=== PATIENT | female | born 1980 | race Caucasian/White ===

== ENCOUNTER 2017-06-17 18:53 | Outpatient (CLI) | payer OTHER, SELFPAY | END 2017-06-17 20:00 | PROVIDERS: Visit Provider Obstetrics & Gynecology | DX: O36.8130 Decreased fetal movements, third trimester, not applicable or unspecified (principal); Z3A.32 32 weeks gestation of pregnancy | CPT/HCPCS: 59025; G0378 ==

== ENCOUNTER → 2017-10-15 09:14 | Outpatient (CLI) | payer OTHER, SELFPAY ==
[2017-10-15 10:51] LABS: Glucose Fasting 99 mg/dL (70-100)
[2017-10-15 11:48] LABS: Glucose Tol Interpretation INTERPRETATION
[2017-10-15 12:19] LABS: Glucose 1 Hour 133 mg/dL (70-170)
[2017-10-15 12:46] LABS: Glucose 2 Hour 113 mg/dL (70-140)
== END ==
PROVIDERS: Visit Provider Obstetrics & Gynecology
DX: O24.419 Gestational diabetes mellitus in pregnancy, unspecified control (principal)
CPT/HCPCS: 36415; 82951; 82952

== ENCOUNTER → 2018-07-17 11:05 | Outpatient (CLI) | payer OTHER, SELFPAY ==
--- NOTE | 2018-07-17 | DI.RAD.S_ITS ---
PROCEDURE: XR FOOT RT 2V INDICATIONS: Fracture of unspecified metatarsal bone(s), right foot TECHNIQUE: 2 views of the foot were acquired. COMPARISON: None. FINDINGS: Bones: No fractures or dislocations. No suspicious bony lesions. Soft tissues: No tibiotalar joint effusion. Achilles tendon appears normal. IMPRESSION: No trauma found, source of asymmetric pain at the right foot is not seen. A stress fracture is not found. Dictated by: Emerson Hull M.D. on 07/17/2018 at 11:35 Approved by: Emerson Hull M.D. on 07/17/2018 at 11:36
== END ==
PROVIDERS: PCP Family Medicine; Visit Provider Chiropractor
DX: S92.301A Fracture of unspecified metatarsal bone(s), right foot, initial encounter for closed fracture (principal)
CPT/HCPCS: 73620

== ENCOUNTER 2021-07-22 18:32 | Emergency (ER) | payer OTHER, SELFPAY ==
[2021-07-22 18:38] VITALS: BMI 48.5
[2021-07-22] MEDS: ONDANSETRON 4 MG/2 ML INJ IV (19:16)
[2021-07-22] MEDS: SODIUM CHLORIDE 0.9% 1,000 ML 1000 ML IV (19:16)
[2021-07-22 19:26] LABS: Add Manual Diff / Slide Review NO; Basophils Absolute Auto 0 /uL (0-100); Basophils Percent Auto 0.3 % (0-2); Eosinophils Absolute Auto 0 /uL (0-450); Hematocrit 37.9 % (36-46); Hemoglobin 12.8 g/dL (12.0-16.0); Lymphocytes Absolute Auto 500 /uL (1100-4500); Lymphocytes Percent Auto 6.6 % (25-40); Mean Corpuscular HGB Conc 33.7 % (30-36); Mean Corpuscular Hemoglobin 27.3 PG (26-34); Mean Corpuscular Volume 80.9 fL (80-100); Monocytes Absolute Auto 400 /uL (0-900); Monocytes Percent Auto 4.9 % (3-14); Neutrophils Absolute Auto 6900 /uL (1500-7000); Neutrophils Percent Auto 88.2 % (50-75); Platelet Count 328 X10^3/uL (150-400); Red Blood Cell Count 4.68 X10^6/uL (4.0-5.2); Red Cell Distribution Width 14.7 % (11.6-14.8); White Blood Cell Count 7.8 X10^3/uL (4.5-11.0)
[2021-07-22 19:37] LABS: Alanine Aminotransferase 25 IU/L (<35); Albumin 4.5 g/dL (3.5-5.0); Albumin Globulin Ratio 1.3 (1.0-2.8); Alkaline Phosphatase 91 U/L (38-126); Aspartate Aminotransferase 29 IU/L (14-36); BUN Creatinine Ratio 16.4 (6-22); Bilirubin Total 0.7 mg/dL (0.2-1.3); Blood Urea Nitrogen 11 mg/dL (7-17); Calcium 8.5 mg/dL (8.4-10.2); Carbon Dioxide 22 mmol/L (22-32); Chloride 103 mmol/L (98-107); Estimated Glomerular Filt Rate > 60 mL/min (>60); Globulin 3.6 g/dL (1.7-4.1); Glucose 171 mg/dL (70-100); HEMOLYSIS < 15 (0-50); Lipase 58 U/L (23-300); Potassium 3.7 mmol/L (3.4-5.1); Sodium 138 mmol/L (137-145); Total Protein 8.1 g/dL (6.3-8.2)
--- NOTE | 2021-07-22 19:51 | ED.NAVMDI ---
HPI - Nausea/Vomiting/Diarrhea General Chief complaint: Nausea/Vomiting/Diarrhea Stated complaint: Norovirus N/V/D, Anxious Time Seen by Provider: 07/22/21 18:51 Source: patient Mode of arrival: Family Vehicle Limitations: no limitations History of Present Illness HPI Narrative: Patient is a 41-year-old female who history of anxiety and PTSD he was been unable to take her medications for the past couple days because of nausea vomiting and diarrhea. She has had nausea vomiting and diarrhea for the past couple days. She has been exposed to individuals who have had very similar symptoms. She was told by primary provider that she probably has norovirus. She does have generalized abdominal tenderness and currently has nausea. No change in a respiratory status. No urinary symptoms. She does have a very dry mouth. Related Data Previous Rx's Medication Instructions Recorded oxycodone 5 mg capsule 5 mg PO Q6H #30 cap 06/28/17 ursodiol 300 mg capsule 300 mg PO TID #60 cap 06/28/17 zolpidem 5 mg tablet 5 mg PO QHS PRN #20 tab 06/28/17 ondansetron 4 mg disintegrating 4 mg PO Q6H PRN #14 tab 07/22/21 tablet Allergies Allergy/AdvReac Type Severity Reaction Status Date / Time Penicillins [PENICILLINS] Allergy Mild RASH - CAN Unverified 07/22/21 18:42 TAKE [facility] Review of Systems Constitutional Constitutional: Denies fever(s) Cardiovascular Cardiovascular: Denies chest pain Respiratory Respiratory: Reports system reviewed and no additional complaints, except as documented Gastrointestinal Gastrointestinal: Reports as per HPI and Reports system reviewed and no additional complaints, except as documented Genitourinary Genitourinary: Reports system reviewed and no additional complaints, except as documented Integumentary/Breasts Skin/Breast: Reports system reviewed and no additional complaints, except as documented Neurologic Neurologic: Reports system reviewed and no additional complaints, except as documented Psychiatric Psychiatric: Reports system reviewed and no additional complaints, except as documented Hematologic/Lymphatic On Anticoagulants: No Patient History Medical History History of shoulder dystocia in prior (05/14/17) Right wrist injury Surgical History (Updated 09/04/17 @ 11:44 by Blossom Hamilton LPN) S/P section (07/11/17) Status post wrist surgery (2013) Social History Smoking Status: Never smoker Smoking Status: Never smoker Substance Use Type: does not use Exam Initial Vital Signs Initial Vital Signs: Vital Signs Temperature 99.9 F H 07/22/21 19:53 Pulse Rate 94 H 07/22/21 19:53 Respiratory Rate 20 07/22/21 19:53 Blood Pressure 146/69 H 07/22/21 19:53 Pulse Oximetry 99 07/22/21 19:53 Const General: cooperative and comfortable HENMT Head: normal to inspection and normocephalic Resp Effort & Inspection: normal respiratory effort Auscultation: clear to auscultation bilaterally Cardio Rate: regular rate Rhythm: regular rhythm GI Inspection: normal to inspection and non-distended Palpation: soft, No guarding and tender Skin General: no rashes or lesions noted Neuro General: patient alert, patient awake and moves all extremities Extrem General: normal to inspection and capillary refill normal Psych Appearance: grossly normal and well kempt Course Orders Ordered: ED Orders 07/22/21 19:20 Complete Blood Count AUTO DIFF Stat Comprehensive Metabolic Panel Stat Lipase Stat Discontinued Medications Sodium Chloride (Normal Saline 0.9%) 1,000 mls @ 1,000 mls/hr IV BOLUS ONE Stop: 07/22/21 20:04 Last Infusion: 07/22/21 21:32 Dose: 0 mls/hr Documented by: Admin: 07/22/21 19:16 Dose: 1,000 mls/hr Documented by: SURENDRA Lorazepam (Lorazepam 2 Mg/Ml Inj) 1 mg IV NOW ONE Stop: 07/22/21 19:52 Last Admin: 07/22/21 19:57 Dose: 1 mg Documented by: TAMMY Ondansetron HCl (Ondansetron 4 Mg/2 Ml Inj) 4 mg IV NOW ONE Stop: 07/22/21 18:38 Last Admin: 07/22/21 19:16 Dose: 4 mg Documented by: SURENDRA Ondansetron HCl (Ondansetron 4 Mg Odt Prepack) 1 bottle MISC SEEINSTR ONE Stop: 07/22/21 21:58 Vital Signs Vital signs: Vital Signs - 8 hr 07/22/21 19:53 Temperature 99.9 F H Pulse Rate 94 H Respiratory Rate 20 Blood Pressure 146/69 H Pulse Oximetry 99 MDM - Nausea/Vomiting/Diarrhea Lab Data Result diagrams: 07/22/21 19:20 07/22/21 19:20 Labs: Lab Results 07/22/21 07/22/21 Range/Units 19:20 19:20 WBC 7.8 (4.5-11.0) X10^3/uL RBC 4.68 (4.0-5.2) X10^6/uL Hgb 12.8 (12.0-16.0) g/dL Hct 37.9 (36-46) % MCV 80.9 (80-100) fL MCH 27.3 (26-34) PG MCHC 33.7 (30-36) % RDW 14.7 (11.6-14.8) % Plt Count 328 (150-400) X10^3/uL Neut % (Auto) 88.2 H (50-75) % Lymph % (Auto) 6.6 L (25-40) % [place] % (Auto) 4.9 (3-14) % Eos % (Auto) 0.0 L (2-4) % Baso % (Auto) 0.3 (0-2) % Neut # (Auto) 6900 (3639-7110) /uL Lymph # (Auto) 500 L (7236-7294) /uL [place] # (Auto) 400 (0-900) /uL Eos # (Auto) 0 (0-450) /uL Baso # (Auto) 0 (0-100) /uL Sodium 138 (137-145) mmol/L Potassium 3.7 (3.4-5.1) mmol/L Chloride 103 (98-107) mmol/L Carbon Dioxide 22 (22-32) mmol/L BUN 11 (7-17) mg/dL Creatinine 0.67 (0.52-1.04) mg/dL Estimated GFR > 60 (>60) mL/min BUN/Creatinine Ratio 16.4 (6-22) Glucose 171 H (70-100) mg/dL Calcium 8.5 (8.4-10.2) mg/dL Total Bilirubin 0.7 (0.2-1.3) mg/dL AST 29 (14-36) IU/L ALT 25 (<35) IU/L Alkaline Phosphatase 91 (38-126) U/L Total Protein 8.1 (6.3-8.2) g/dL Albumin 4.5 (3.5-5.0) g/dL Globulin 3.6 (1.7-4.1) g/dL Albumin/Globulin Ratio 1.3 (1.0-2.8) Lipase 58 (23-300) U/L ECG Data Attestation: I personally reviewed and interpreted this ECG as follows: Interpretation: Sinus rhythm Ventricular rate 91 Normal axis Normal QRS Normal QTC No ST T wave changes MDM Narrative Medical decision making narrative: Patient did have improvement of symptoms after the therapies provided here in the emergency department. She does have a benign abdomen. She was able to tolerate a small amount of fluids. Afebrile. Was unable to provide a stool sample here in the ER. No indication for antibiotics. Will send home with symptom control. She was given return precautions. She expressed understanding and agreement. Discharge Plan Departure Patient Disposition: Home Clinical Impression: Nausea, vomiting, and diarrhea Instructions: Diarrhea, Nausea and Vomiting-Adult Activity Restrictions/Additional Instructions: Use the nausea medication as needed. Be sure to increase your fluid intake and drink small amounts of fluid over long periods of time. Return to the emergency department for any new or worsening symptoms. Prescriptions: New ondansetron 4 mg tablet,disintegrating 4 mg PO Q6H PRN (Reason: nausea and vomiting) Qty: 14 0RF No Action zolpidem 5 mg tablet 5 mg PO QHS PRN (Reason: insomnia) Qty: 20 0RF ursodiol 300 mg capsule 300 mg PO TID Qty: 60 0RF oxycodone 5 mg capsule 5 mg PO Q6H Qty: 30 0RF Referrals: Arabella Dudley MD [Primary Care Provider] -
[2021-07-22 19:53] VITALS: BP 146/69; PULSE 94; RESP 20; TEMP 37.7; O2SAT 99
[2021-07-22] MEDS: LORazepam 2 MG/ML INJ 1 MG IV (19:57)
[2021-07-22 22:07] VITALS: BP 111/69; PULSE 98; RESP 18; O2SAT 100
[2021-07-22] MEDS: ONDANSETRON 4 MG ODT PREPACK 1 BOTTLE MISC (22:07)
== END 2021-07-22 22:32 | disposition home or self-care (01) ==
PROVIDERS: Emergency Provider Emergency Medicine; PCP Family Medicine
DX: R11.2 Nausea with vomiting, unspecified (principal); R19.7 Diarrhea, unspecified; R10.84 Generalized abdominal pain
CPT/HCPCS: 36415; 80053; 83690; 85025; 93005; 96361; 96374; 96375; 99284; J2060; J2405